=== PATIENT | female | born 1955 | race Caucasian/White ===

== ENCOUNTER 2017-12-25 13:32 | Emergency (ER) | payer BC, OTHER ==
[2017-12-25 16:34] VITALS: BP 116/56
--- NOTE | 2017-12-25 16:43 | UC ---
Respiratory Complaint HPI - HPI Summary HPI Summary: 62 y/o female presents to the urgent care c/o productive cough w/ yellow phlegm for the past 6 days days. Pt reports , headache and b/l ear clogged/pressure starting today. She also c/o of her LF nostril to be sore and dry for the past 2 months. She was Dx with dry eyes and since then she has notice also dryness on the left side of her nostril . She has also hoarseness associated with the cough. Pt denies fever, chills, chest pain, abdominal pain, N/V/D. She has taken Dayquill , Nyquill to alleviates symptoms. - History of Current Complaint Chief Complaint: UCRespiratory Stated Complaint: COLD SYMPTOMS Time Seen by Provider: 12/25/17 16:41 Hx Obtained From: Patient Onset/Duration: Gradual Onset, Lasting Days - 6 days with nasal congestion, CHEUNG, Still Present, Worse Since - 3 days ago Timing: Constant Severity Initially: Mild Severity Currently: Moderate Pain Intensity: 6 Pain Scale Used: 0-10 Numeric Character: Cough: Productive, Sputum Description: - yellowish Aggravating Factors: Recumbent Position Alleviating Factors: OTC Meds Associated Signs And Symptoms: Positive: URI, Nasal Congestion. Negative: Fever , Chills - Risk Factors Pulmonary Embolism Risk Factors: Negative Cardiac Risk Factors: Negative Pseudomonas Risk Factors: Negative Tuberculosis Risk Factors: Negative - Allergies/Home Medications Allergies/Adverse Reactions: Allergies Allergy/AdvReac Type Severity Reaction Status Date / Time No Known Allergies Allergy Verified 12/25/17 16:28 PMH/Surg Hx/FS Hx/Imm Hx Previously Healthy: Yes - Pt denies PMHX - Surgical History Surgical History: Yes Surgery Procedure, Year, and Place: gallbladder - Family History Known Family History: Positive: None - Pt denies FMHX - Social History Occupation: Employed Full-time Lives: With Family Alcohol Use: Occasionally Substance Use Type: None Smoking Status (MU): Never Smoked Tobacco Review of Systems Constitutional: Negative Skin: Negative Eyes: Negative ENT: Ear Ache - B/L ear pressure, Nasal Discharge, Sinus Congestion, Sinus Pain/ Tenderness, Other - hoarseness Respiratory: Cough - productive cough Cardiovascular: Negative Gastrointestinal: Negative Genitourinary: Negative Motor: Negative Neurovascular: Negative Musculoskeletal: Negative Neurological: Headache Psychological: Negative Is Patient Immunocompromised?: No All Other Systems Reviewed And Are Negative: Yes Physical Exam Triage Information Reviewed: Yes Vital Signs: Initial Vital Signs Temp 98.5 F 12/25/17 16:28 Pulse 92 12/25/17 16:28 Resp 16 12/25/17 16:28 BP 116/56 12/25/17 16:28 Pulse Ox 100 12/25/17 16:28 - Additional Comments Vitals: reviewed General: Well developed, well-nourished female patient with NAD. Head and face: Normocephalic and atraumatic, Positive tenderness over the frontal and maxillary sinuses.. Eyes: PERRLA, EOMI x 2. Normal conjunctiva. No eye discharge. ENT: Ears and TM with normal limits. Nose: with yellowish discharge and erythematous mucosa LF > RT . Pharynx with mild erythema, no exudate.+ yellowish PND Neck: Supple, no JVD, no carotid bruits and no lymphadenopathy. Lungs: clear, no rales, no rhonchi, no wheezes. CVS: RRR, S1 and S2 present no murmurs or gallops appreciated. Abdomen: soft nontender with positive bowel sounds. Extremities: no edema noted. Neuro: WNL. Skin: warm and dry UC Diagnostic Evaluation - Laboratory O2 Sat by Pulse Oximetry: 100 Respiratory Course/Dx - Course Course Of Treatment: 62 y/o female presents to the urgent care c/o productive cough w/ yellow phlegm for the past 6 days days. Pt reports , headache and b/l ear clogged/pressure starting today. She also c/o of her LF nostril to be sore and dry for the past 2 months. She was Dx with dry eyes and since then she has notice also dryness on the left side of her nostril . She has also hoarseness associated with the cough. Pt deneis fever, chills, chest pain, abdominal pain, N/V/D. She has taken Dayquill , Nyquill to alleviate symptoms. Pt with sinusitis one examination. Influenza A&B ordered: result:negative. Pt Rx Augmentin and Flonase PO and Tessalon tabs PO to alleviates symptoms. F/u with her ENT for furtehr management. Pt advised to rest, increase fluid intake, eat well and avoid strenuous exercise. If symptoms do not improve or worsen advised f/u with her PCP for further evaluation and treatment. Pt understood and agreed with plan of care. - Differential Dx/Diagnosis Differential Diagnosis/HQI/PQRI: Influenza, Laryngitis, Lower Resp Infection, Sinusitis Provider Diagnoses: 1- Acute bacterial sinusitis. 2- Cough Discharge - Discharge Plan Condition: Stable Disposition: HOME Prescriptions: Amoxicillin/Clavulanate TAB* [Augmentin TAB 875*] 875 mg PO BID #20 tab Benzonatate CAP* [Tessalon 100 MG CAP*] 100 mg PO TID #21 cap Fluticasone NASAL SPRAY 50MCG* [Flonase NASAL SPRAY 50MCG*] 2 spray BOTH NARES DAILY #1 btl Patient Education Materials: Sinusitis (ED) Referrals: Juani Angeles MD [Primary Care Provider] - 1 Week Additional Instructions: 1- Please increase fluid intake and rest. take full course of antibiotic to avoid resistance. F/u with your ENT for further management 2-Use Flonase as directed to help drain fluid. Also buy saline drops to clear sinuses 3-Take Tessalon tabs PO to alleviates cough 4-Return to the clinic or PCP if symptoms do not improve for further management and treatment
== END 2017-12-25 17:53 | disposition home or self-care (01) ==
LOC: UCCORT 13:32
DX: J01.90 Acute sinusitis, unspecified (principal); B96.89 Other specified bacterial agents as the cause of diseases classified elsewhere; R05 Cough
CPT/HCPCS: 87502; 99212; G0463